=== PATIENT | male | born 1970 | race Caucasian/White ===

== ENCOUNTER 2019-06-27 08:56 | Emergency (ER) | payer OTHER, MEDICAID ==
[~2019-06-27] VITALS: Ht 188 cm; Wt 90.7 kg
[~2019-06-27 08:56] MED LIST: ATENOLOL 25MG T25 MG PG; BUPROPION; CARAFATE 1 GM TA1 G1 PO; CARAFATE1 GM/10 ML PO; CIPRO500 MG PO; CLONAZEPAM 1 MG1 M1 NG; COMPAZINE10 MG PO; DEPAKOTE500 MG PO; FLAGYL500 MG PO; HYDROCODON-ACE1 EAC7 PO; HYDROCODONE-AP1 EAC1 PO; HYDROCODONE-AP1 EAC6 PO; IBUPROFEN 800800 M1 PO; LACTULOSE10 GM/153 PO; LEVOTHYROXIN0.025 MG PO; LEVOTHYROXINE 0.1 MG PO; LEVSIN SL; LORTAB 5 MG/5001 TAB PO; NORCO 5-325 TA1 EACH PO; NORFLEX100 MG PO; NORVASC10 MG PO; OMEPRAZOLE 20 M20 M1 PO; ONDANSETRON HCL4 M2 PO; PEPCID20 MG PO; PHENERGAN 25 MG25 M1 PO; PHENERGAN 25 MG25 MG PO; SEROQUEL 50 MG50 MG PO; TRAMADOL 50 MG50 MG; TRAMADOL 50 MG50 MG PO; ULTRAM 50MG TAB50 MG PO; ZOFRAN 4 MG ORAL4 M1 DIS; ZOFRAN ODT4 MG PO; ZOFRAN4 MG PO
[2019-06-27 09:28] LABS: URINE BILIRUBIN NEGATIVE (Negative); URINE BLOOD NEGATIVE (Negative); URINE CLARITY CLEAR; URINE COLOR YELLOW; URINE GLUCOSE-RANDOM NEGATIVE (Negative); URINE KETONES NEGATIVE (Negative); URINE LEUKOCYTES-REFLEX NEGATIVE (Negative); URINE NITRITE-REFLEX NEGATIVE (Negative); URINE PROTEIN 1+ (Negative); URINE UROBILINOGEN 0.2 E.U./dl (0.2-1.0)
[2019-06-27 09:30] LABS: ABSOLUTE LYMPHOCYTES 1.6 thou/uL (0.8-5.3); ABSOLUTE MONOCYTES 0.8 thou/uL (0.0-1.2); ABSOLUTE NEUTROPHILS 6.2 thou/uL (1.6-8.1); BASOPHILS 0.3 %; EOSINOPHILS 0.5 %; HEMATOCRIT 45.7 % (42.0-52.0); HEMOGLOBIN 16.3 gm/dL (14.0-18.0); LYMPHOCYTES 18.3 %; MCHC 35.8 g/dL (28.0-37.0); MCV 95.2 fL (80.0-100.0); MONOCYTES 9.4 %; MPV 7.6 fl. (7.2-11.1); NUCLEATED RBCS 0 /100WBC; PLATELET COUNT* 264 thou/uL (150-400); POLYS 71.5 %; RDW-CV 12.8 % (10.5-14.5); WBC 8.7 thou/uL (4.0-11.0)
[2019-06-27 09:43] LABS: CALCIUM 8.8 mg/dL (8.5-10.1); CREATININE 0.9 mg/dL (0.6-1.3); POTASSIUM 3.7 mmol/L (3.5-5.1)
[2019-06-27 09:47] LABS: ALBUMIN 4.2 g/dL (3.4-5.0); TOTAL BILIRUBIN 0.8 mg/dL (<0.1-1.0); TOTAL PROTEIN 8.2 g/dL (6.4-8.2)
[2019-06-27 09:48] LABS: AMP/METHAMP Negative (Negative); BARBITURATES Negative (Negative); BENZODIAZEPINES Negative (Negative); COCAINE Negative (Negative); METHADONE Negative (Negative); OPIATES Negative (Negative); PCP Negative (Negative); THC POSITIVE (Negative)
[2019-06-27] MEDS ORDERED: ZOFRAN4 MG PO (11:23)
[2019-06-27] MEDS ORDERED: TRAMADOL 50 MG50 MG PO (11:23)
[2019-06-27 11:37] VITALS: BP 188/102
== END 2019-06-27 11:38 | disposition home or self-care (01) ==
LOC: M.ERS 08:56
PROVIDERS: Emergency Medicine
DX: K52.9 Noninfective gastroenteritis and colitis, unspecified (principal); F31.9 Bipolar disorder, unspecified; F17.210 Nicotine dependence, cigarettes, uncomplicated; Z88.1 Allergy status to other antibiotic agents; Z88.8 Allergy status to other drugs, medicaments and biological substances; Z90.49 Acquired absence of other specified parts of digestive tract; Z86.19 Personal history of other infectious and parasitic diseases; Z79.899 Other long term (current) drug therapy

== ENCOUNTER 2019-11-06 16:53 | Emergency (ER) | payer OTHER, MEDICAID ==
[~2019-11-06] VITALS: Ht 188 cm; Wt 95.3 kg
[2019-11-06] MEDS ORDERED: ASA81BEC PO (17:41)
[2019-11-06] MEDS ORDERED: NORCO 5-325 TA1 EAC1 PO (19:17)
[2019-11-06 19:29] VITALS: BP 140/78
== END 2019-11-06 19:30 | disposition home or self-care (01) ==
LOC: M.ERS 16:53
DX: S99.922A Unspecified injury of left foot, initial encounter (principal); F17.210 Nicotine dependence, cigarettes, uncomplicated; F12.10 Cannabis abuse, uncomplicated; F31.9 Bipolar disorder, unspecified; Z88.1 Allergy status to other antibiotic agents; Z88.8 Allergy status to other drugs, medicaments and biological substances; Z79.82 Long term (current) use of aspirin; Z90.49 Acquired absence of other specified parts of digestive tract; Z86.19 Personal history of other infectious and parasitic diseases; W22.8XXA Striking against or struck by other objects, initial encounter; Y93.89 Activity, other specified; Y92.89 Other specified places as the place of occurrence of the external cause; Y99.8 Other external cause status

== ENCOUNTER 2020-11-30 09:08 | Emergency (ER) | payer OTHER, MEDICAID ==
[~2020-11-30] VITALS: Ht 185.4 cm; Wt 95.3 kg
[~2020-11-30 09:08] MED LIST changes: +ASA81BEC PO; +NORCO 5-325 TA1 EAC1 PO
[2020-11-30 09:34] LABS: ABSOLUTE BASOPHILS 0.1 thou/uL (0.0-0.2); ABSOLUTE EOSINOPHILS 0.1 thou/uL (0.0-0.7); ABSOLUTE LYMPHOCYTES 2.3 thou/uL (0.8-5.3); ABSOLUTE MONOCYTES 0.7 thou/uL (0.0-1.2); BASOPHILS 0.8 %; EOSINOPHILS 1.5 %; HEMATOCRIT 47.5 % (42.0-52.0); HEMOGLOBIN 16.3 gm/dL (14.0-18.0); LYMPHOCYTES 32.1 %; MCHC 34.2 g/dL (28.0-37.0); MCV 96.5 fL (80.0-100.0); MONOCYTES 9.9 %; MPV 7.7 fl. (7.2-11.1); NUCLEATED RBCS 0 /100WBC; PLATELET COUNT* 259 thou/uL (150-400); POLYS 55.7 %; RBC 4.92 mil/uL (4.50-6.00); RDW-CV 13.6 % (10.5-14.5); WBC 7.2 thou/uL (4.0-11.0)
[2020-11-30 09:42] LABS: CALCIUM 8.1 mg/dL (8.5-10.1); CREATININE 0.9 mg/dL (0.6-1.3); POTASSIUM 3.1 mmol/L (3.5-5.1)
[2020-11-30 09:46] LABS: ALBUMIN 3.4 g/dL (3.4-5.0); TOTAL BILIRUBIN 0.7 mg/dL (<0.1-1.0); TOTAL PROTEIN 8.6 g/dL (6.4-8.2)
[2020-11-30 10:20] LABS: URINE BILIRUBIN NEGATIVE (Negative); URINE BLOOD NEGATIVE (Negative); URINE CLARITY CLEAR; URINE COLOR YELLOW; URINE GLUCOSE-RANDOM NEGATIVE (Negative); URINE KETONES NEGATIVE (Negative); URINE LEUKOCYTES-REFLEX NEGATIVE (Negative); URINE NITRITE-REFLEX NEGATIVE (Negative); URINE PROTEIN NEGATIVE (Negative); URINE UROBILINOGEN 0.2 E.U./dl (0.2-1.0)
[2020-11-30] MEDS ORDERED: BENTYL 10 MG CA10 M1 PO (11:30)
[2020-11-30] MEDS ORDERED: ZOFRAN ODT4 MG DISSOLVE (11:30)
[2020-11-30 11:32] VITALS: BP 155/99
--- NOTE | 2020-12-01 10:23 | EKG ---
[place] [address] ELECTROCARDIOGRAM REPORT Name: ALVARO WOO Room: [facility]#: [id number] Admission: 11/30/20 Attend Phys: Discharge: 11/30/20 Date of : 66 Date of Service: 11/30/20 0935 Report #: [id number] THIS REPORT FOR: //name// [facility] ED Test Date: 2020-11-30 Test Time: 09:35:11 Pat Name: ALVARO WOO Department: Room: Gender: [employer] Operator: [facility] : 1970 Requested By: Boy Montesinos Order Number: [id number] MD: Shantanu Mancini Measurements Intervals [place] Rate: 71 P: 25 CA: 167 QRS: 33 QRSD: 82 T: 54 QT: 390 QTc: 424 Interpretive Statements Sinus rhythm Compared to ECG 01/27/2016 15:55:47 ST (T wave) deviation no longer present Electronically Signed On 12-01-2020 10:23:13 CDT by Shantanu Mancini [email or web address] <ELECTRONICALLY SIGNED> By: Shantanu Mancini MD, [facility] 12/01/20 1023 0935 0935 Shantanu Mancini MD, [facility] /EPI
== END 2020-11-30 11:32 | disposition home or self-care (01) ==
LOC: M.ERS 09:08
PROVIDERS: Emergency Medicine Emergency Medical Services
DX: K52.9 Noninfective gastroenteritis and colitis, unspecified (principal); F17.210 Nicotine dependence, cigarettes, uncomplicated; Z88.1 Allergy status to other antibiotic agents; Z88.8 Allergy status to other drugs, medicaments and biological substances; Z90.49 Acquired absence of other specified parts of digestive tract; Z86.19 Personal history of other infectious and parasitic diseases